=== PATIENT | female | born 1945 | race Caucasian/White ===

== ENCOUNTER 2020-11-18 12:05 | Inpatient (IN) | payer OTHER ==
[~2020-11-18] VITALS: Ht 154.9 cm; Wt 69.9 kg
[2020-11-18] MEDS ORDERED: PREGABALIN25 MG PO (17:49)
[2020-11-18] MEDS ORDERED: VOLTAREN ARTHRI20 GM TOP (17:49)
[2020-11-18] MEDS ORDERED: CLONIDINE1 EAC1 TD (17:50)
[2020-11-18] MEDS ORDERED: COREG 25MG TAB25 MG PO (17:51)
[2020-11-18] MEDS ORDERED: ALENDRONATE SOD70 MG PO (17:51)
[2020-11-18] MEDS ORDERED: PROTONIX 40 MG40 M1 PO (17:52)
[2020-11-18] MEDS ORDERED: GLIMEPIRIDE4 MG PO (17:52)
[2020-11-18] MEDS ORDERED: VITAMIN D21250 MCG PO (17:53)
[2020-11-18] MEDS ORDERED: METFORMIN HCL1000 MG PO (17:54)
[2020-11-18] MEDS ORDERED: LISINOPRIL40 MG PO (17:55)
[2020-11-18] MEDS ORDERED: LOW DOSE ASPIRI81 MG PO (18:00)
[2020-11-18 19:54] LABS: RED BLOOD COUNT 3.58 M/UL (4.00-5.10); WHITE BLOOD COUNT 5.6 K/UL (4.5-11.0)
[2020-11-18 20:17] LABS: BUN/CREATININE RATIO 16 (0-10)
[2020-11-19 09:07] LABS: RED BLOOD COUNT 3.65 M/UL (4.00-5.10); WHITE BLOOD COUNT 4.4 K/UL (4.5-11.0)
[2020-11-19 09:33] LABS: BUN/CREATININE RATIO 14 (0-10)
[2020-11-20 03:29] LABS: RED BLOOD COUNT 3.36 M/UL (4.00-5.10)
[2020-11-20 03:32] LABS: WHITE BLOOD COUNT 7.3 K/UL (4.5-11.0)
[2020-11-20] MEDS ORDERED: LOPRESSOR 50 MG50 MG PO (10:33)
[2020-11-20] MEDS ORDERED: ELIQUIS 5 MG TAB5 MG PO (10:33)
[2020-11-20] MEDS ORDERED: CEFUROXIME500 MG PO (10:33)
[2020-11-20] MEDS ORDERED: DILTIAZEM 24HR240 M1 PO (10:33)
[2021-01-13] MEDS ORDERED: MULTAQ 400 MG400 MG PO (10:10)
== END 2020-11-20 11:36 | disposition home or self-care (01) | DRG 309 ==
LOC: PROG CARE 17:17
PROVIDERS: Physician Assistant; ADMIT Internal Medicine Infectious Disease
PROC: B24BZZZ Ultrasonography of Heart with Aorta (ICD-10-PCS; principal; 2020-11-19)
DX: I48.91 Unspecified atrial fibrillation (principal); I50.1 Left ventricular failure, unspecified; I31.3 Pericardial effusion (noninflammatory); N30.00 Acute cystitis without hematuria; I35.0 Nonrheumatic aortic (valve) stenosis; I27.22 Pulmonary hypertension due to left heart disease; I11.0 Hypertensive heart disease with heart failure; I16.0 Hypertensive urgency; E83.42 Hypomagnesemia; E11.9 Type 2 diabetes mellitus without complications; G30.1 Alzheimer's disease with late onset; F02.80 Dementia in other diseases classified elsewhere, unspecified severity, without behavioral disturbance, psychotic disturbance, mood disturbance, and anxiety; Z96.642 Presence of left artificial hip joint; Z90.49 Acquired absence of other specified parts of digestive tract; Z90.711 Acquired absence of uterus with remaining cervical stump; Z82.49 Family history of ischemic heart disease and other diseases of the circulatory system; Z83.3 Family history of diabetes mellitus; Z79.84 Long term (current) use of oral hypoglycemic drugs; Z79.82 Long term (current) use of aspirin; Z79.899 Other long term (current) drug therapy; R60.0 Localized edema
CPT/HCPCS: ECHO; 36415; 71045; 80048; 80053; 82550; 82553; 82962; 83036; 83735; 83880; 84439; 84443; 84484; 85025; 87040; 93005; 93306; 94760; J0696; J1650; J2060; J3475; J7070

== ENCOUNTER → 2021-01-13 | Outpatient (CLI) | payer OTHER ==
[~2021-01-13] MED LIST: ALENDRONATE SOD70 MG PO; CEFUROXIME500 MG PO; CEPHALEXIN250 MG PO; CLONIDINE1 EAC1 TD; COREG 25MG TAB25 MG PO; DILTIAZEM 24HR240 M1 PO; DOXYCYCLINE MO100 MG PO; ELIQUIS 5 MG TAB5 MG PO; GLIMEPIRIDE4 MG PO; LASIX40 MG PO; LISINOPRIL40 MG PO; LOPRESSOR 50 MG50 MG PO; LOW DOSE ASPIRI81 MG PO; METFORMIN HCL1000 MG PO; MULTAQ 400 MG400 MG PO; PACERONE200 MG PO; PREGABALIN25 MG PO; PROTONIX 40 MG40 M1 PO; VITAMIN D21250 MCG PO; VOLTAREN ARTHRI20 GM TOP; ZESTRIL 40 MG T40 MG PO
[2021-01-13 07:39] LABS: HEMOGLOBIN 9.2 gm/dl (12.3-15.3); RED BLOOD COUNT 3.17 M/UL (4.00-5.10)
== END ==
LOC: CATH 06:58
PROVIDERS: Internal Medicine Cardiovascular Disease
DX: I48.91 Unspecified atrial fibrillation (principal); I11.0 Hypertensive heart disease with heart failure; I50.32 Chronic diastolic (congestive) heart failure; I27.20 Pulmonary hypertension, unspecified
CPT/HCPCS: 80048; 82962; 85027; 92960; 93005; J1200; J2250; J2310; J3010; J7040

== ENCOUNTER → 2021-01-21 | Outpatient (CLI) | payer OTHER | LOC: HEART 5 11:13 | DX: Z51.81 Encounter for therapeutic drug level monitoring (principal); Z79.899 Other long term (current) drug therapy; I48.91 Unspecified atrial fibrillation | CPT/HCPCS: 94010; 94729 ==

== ENCOUNTER 2021-01-31 21:09 | Inpatient (IN) | payer OTHER ==
[~2021-01-31] VITALS: Ht 157.5 cm; Wt 76.7 kg
[~2021-01-31 21:09] MED LIST changes: -CEPHALEXIN250 MG PO; -DOXYCYCLINE MO100 MG PO; -LASIX40 MG PO; -PACERONE200 MG PO; -ZESTRIL 40 MG T40 MG PO
[2021-01-31] MEDS ORDERED: PACERONE200 MG PO (23:45)
[2021-01-31] MEDS ORDERED: CEPHALEXIN250 MG PO (23:47)
[2021-01-31] MEDS ORDERED: ZESTRIL 40 MG T40 MG PO (23:50)
--- NOTE | 2021-02-01 02:27 | NUR ---
PATIENT MAKES CONTINUED ATTEMPTS TO GET OUT OF BED AND PULLING ON LINES. REORIENTING THE PATIENT, BUT PATIENT REMAISN CONFUSED. BED ALARM ON, AND DOOR REMAINS OPEN. WILL CONTINUE TO MONITOR.
[2021-02-02 05:06] LABS: HEMOGLOBIN 7.7 gm/dl (12.3-15.3); RED BLOOD COUNT 2.67 M/UL (4.00-5.10); WHITE BLOOD COUNT 6.7 K/UL (4.5-11.0)
[2021-02-03 04:32] LABS: HEMOGLOBIN 7.2 gm/dl (12.3-15.3); RED BLOOD COUNT 2.54 M/UL (4.00-5.10); WHITE BLOOD COUNT 5.2 K/UL (4.5-11.0)
[2021-02-04 04:10] LABS: HEMOGLOBIN 7.7 gm/dl (12.3-15.3); RED BLOOD COUNT 2.71 M/UL (4.00-5.10); WHITE BLOOD COUNT 5.3 K/UL (4.5-11.0)
[2021-02-04] MEDS ORDERED: LASIX40 MG PO (10:39)
[2021-02-04] MEDS ORDERED: DOXYCYCLINE MO100 MG PO (10:39)
== END 2021-02-04 12:45 | disposition home health service (06) | DRG 871 ==
LOC: MED SURG 4 23:11 → CCU 23:11 → MED SURG 4 02-02 14:03
PROVIDERS: Internal Medicine; ADMIT Internal Medicine
DX: A41.9 Sepsis, unspecified organism (principal); J18.9 Pneumonia, unspecified organism; G93.41 Metabolic encephalopathy; J96.01 Acute respiratory failure with hypoxia; I50.33 Acute on chronic diastolic (congestive) heart failure; I16.1 Hypertensive emergency; L03.115 Cellulitis of right lower limb; I38 Endocarditis, valve unspecified; R65.20 Severe sepsis without septic shock; I11.0 Hypertensive heart disease with heart failure; I07.1 Rheumatic tricuspid insufficiency; I27.20 Pulmonary hypertension, unspecified; E11.9 Type 2 diabetes mellitus without complications; I48.91 Unspecified atrial fibrillation; I35.0 Nonrheumatic aortic (valve) stenosis; Z20.822 Contact with and (suspected) exposure to COVID-19; G30.9 Alzheimer's disease, unspecified; F02.80 Dementia in other diseases classified elsewhere, unspecified severity, without behavioral disturbance, psychotic disturbance, mood disturbance, and anxiety; Z79.01 Long term (current) use of anticoagulants; Z79.4 Long term (current) use of insulin; E87.6 Hypokalemia
CPT/HCPCS: 36415; 70450; 71045; 80048; 80053; 80202; 81001; 82550; 82553; 82607; 84439; 84443; 84484; 84550; 85025; 85027; 85610; 85730; 87040; 92610; 93005; 93971; 94760; 97116-GP-CQ; 97162; 97530-GP-CQ; J1940; J2405; J2543; J3370; J7040; J7070